=== PATIENT | male | born 1970 | race Caucasian/White ===

== ENCOUNTER 2021-02-07 20:28 | Inpatient (IN) ==
[2021-02-07] MEDS ORDERED: MoRPHine SULFATE 10 MG/ML CARP/VIAL IV STA (21:23)
[2021-02-07] MEDS ORDERED: KETOROLAC TROMETHAMINE 15 MG/ML VIAL IV ONE (21:23)
[2021-02-07] MEDS ORDERED: SODIUM CHLORIDE 0.9% 1000ML 2,000 ML IV ONE (21:23)
[2021-02-07] MEDS ORDERED: ONDANSETRON INJ 2 MG/ML 2 ML VIAL IV STA (21:23)
[2021-02-07] MEDS ORDERED: MoRPHine SULFATE 2 MG/ML CARP ONE (21:26)
[2021-02-07] MEDS ORDERED: MoRPHine SULFATE 4 MG/ML 1 ML CARP\\VIAL ONE (21:27)
[2021-02-07 21:38] LABS: Basophils # (auto) 0.02 K/uL (0-0.2); Basophils % (auto) 0.1 %; Eosinophils # (auto) 0.04 K/uL (0-0.5); Eosinophils % (auto) 0.2 %; Hemoglobin 17.1 g/dL (14.0-18.0); Immature Granulocytes # (auto) 0.07 K/uL (0.00-0.02); Immature Granulocytes % (auto) 0.4 %; Lymphocytes # (auto) 1.29 K/uL (1.2-3.4); Lymphocytes % (auto) 7.2 %; Mean Corpuscular Hemoglobin 32.8 pg (25-34); Mean Corpuscular Hgb Conc 34.9 g/dL (32-36); Mean Corpuscular Volume 93.9 fL (80-100); Mean Platelet Volume 11.2 fL (7.4-10.4); Monocytes # (auto) 1.06 K/uL (0.11-0.59); Monocytes % (auto) 5.9 %; Neutrophils # (auto) 15.44 K/uL (1.4-6.5); Neutrophils % (auto) 86.2 %; Platelet Count 193 K/uL (130-400); RDW Coefficient of Variation 13.1 % (11.5-14.5); RDW Standard Deviation 45.1 fL (36.4-46.3); Red Blood Count 5.22 M/uL (4.7-6.1); White Blood Count 17.92 K/uL (4.8-10.8)
--- NOTE | 2021-02-07 21:41 | Emergency Department Note ---
Impression & Plan Renal colic, Leukocytosis, Vomiting, ROX (acute kidney injury), Hyperglycemia, Acute dehydration, Hydronephrosis ED Provider Note NAME: KONRAD HOFFMAN AGE: 50 SEX: M : 1970 ARRIVES VIA: Walk-In INFORMANT: Patient ED PROVIDER(S): Alan Gibson DO CHIEF COMPLAINT: Severe right flank pain HPI: Patient is a 50-year-old male with a past medical history of renal stones that presents to the ER for severe right flank pain. Pain started around 530 tonight. It started in his right back and now radiates to the right flank. Pain is a 10 out of 10. Associate with nausea/vomiting. He is unable to urinate since the pain started. Prior to this he had no dysuria, urgency, or frequency. No chest pain or shortness of breath. No headache or change in vision. No other exacerbating or remitting factors. Does feel like his previous stone. Pain is sharp and stabbing in nature ROS: See above HPI for pertinent positives & negatives. A total of 10 systems reviewed and were otherwise negative. PAST MEDICAL HISTORY:See Below PAST SURGICAL HISTORY:See Below FAMILY HISTORY:See Below SOCIAL HISTORY:See Below HOME MEDICATIONS:See Below ALLERGIES:See Below VITALS:See Below PHYSICAL EXAMINATION: GENERAL: Sitting up in bed, alert, significant distress, tearful, holding right flank EYE EXAM: normal conjunctiva. OROPHARYNX: no exudate, no erythema, lips, buccal mucosa, and tongue normal and mucous membranes are moist NECK: supple, no nuchal rigidity, no adenopathy, non-tender LUNGS: Clear to auscultation. Normal chest wall mechanics HEART: no murmurs, S1 normal and S2 normal ABDOMEN: abdomen soft, non-tender, normo-active bowel sounds, no masses, no rebound or guarding. BACK: Back is symmetrical on inspection and there is no deformity, no midline tenderness, no CVA tenderness. UPPER EXTREMITIES: upper extremities are grossly normal. LOWER EXTREMITIES: No pitting edema. NEURO EXAM: Normal sensorium, cranial nerves II-XII grossly intact, normal speech, no gross weakness of arms, no gross weakness of legs. MEDICAL DECISION MAKING: Patient is a 50-year-old male who presents the ER for severe right flank pain. IV was established blood work was obtained. Labs show leukocytosis 17,000. No significant anemia.BMP with creatinine 1.6 likely suggesting some ROX secondary to dehydration. Glucose was elevated to 2 7. T bili slightly elevated. Lipase elevated 747 which I do favor secondary to the vomiting. UA without infection although hematuria present likely secondary to the stones.CT abdomen pelvis shows a 7 mm stone with hydronephrosis. He was given 2 doses of narcotics as well as IV Toradol and 3 L of IV fluids. With the persistent pain he was discussed with the hospitalist for further evaluation. Triage Nursing notes reviewed. Limited review of prior medical records performed Vital Signs: reviewed and remarkable for HTN and tachy Differential diagnosis: Differential diagnoses includes but is not limited to gastritis, peptic ulcer disease, GERD, gallbladder disease, pancreatitis, small bowel obstruction, acute coronary syndrome, pericarditis, ischemic bowel, irritable bowel disease, irritable bowel syndrome, appendicitis, diverticulitis, malignancy, hernia, urinary tract infection, torsion, perforation, trauma, infectious. ER treatment provided: See below Diagnostics interpreted by me: ECG: none Cardiac Monitoring: An order was placed for continuous cardiac monitoring. The monitor shows a rate of 101 with sinus rhythm. Laboratory studies: As stated above and show below. Imaging studies: CT per stat read shows a 7.2 mm stone just above the right UVJ Consultation(s): Discussed with Dr. Avelar for further evaluation Procedures: none Critical Care: None Past Med/Surg History Social History Smoking Status: Never smoker Preferred Language: Slovenian Feels Safe at Home: Yes Allergies Allergies Allergy/AdvReac Type Severity Reaction Status Date / Time adhesive Allergy Intermediate RED, Verified 02/07/21 22:21 BLISTERED SKIN Home Meds Home Medications Medication Instructions Recorded Confirmed atorvastatin 10 mg PO HS 02/07/21 02/07/21 gabapentin 0 mg PO HS 02/07/21 02/07/21 lisinopril 10 mg PO HS 02/07/21 02/07/21 metformin 1,000 mg PO BID 02/07/21 02/07/21 Results & Data (ED) Vital Signs Vital Signs - 24 hr 02/07/21 20:31 02/07/21 21:25 02/07/21 21:28 Temperature 36.6 C Temperature Source Temporal Artery Scan Pulse Rate 93 H 71 72 Pulse Rate from SpO2 Sensor 72 76 Pulse Rhythm Regular Pulse Strength Normal Respiratory Rate 22 17 22 Respiratory Effort / Characteristics Non-Labored Spontaneous Respiratory Depth Normal Blood Pressure 184/100 H 161/106 H Blood Pressure Mean 128 124 Pulse Oximetry 98 99 99 Oxygen Delivery Method Room Air Room Air Room Air Sepsis Recent Fever Within 48 Hours No Sepsis New/Unexplained Change in Mental Status N/A Sepsis Action Taken by Nursing No Action Required 02/07/21 21:30 02/07/21 21:31 02/07/21 22:00 Temperature Temperature Source Pulse Rate 98 H 97 H 114 H Pulse Rate from SpO2 Sensor 109 H 98 H 108 H Pulse Rhythm Pulse Strength Respiratory Rate 18 24 18 Respiratory Effort / Characteristics Respiratory Depth Blood Pressure 156/112 H 148/105 H Blood Pressure Mean 126 119 Pulse Oximetry 97 98 96 Oxygen Delivery Method Room Air Room Air Room Air Sepsis Recent Fever Within 48 Hours Sepsis New/Unexplained Change in Mental Status Sepsis Action Taken by Nursing 02/07/21 22:01 02/07/21 22:30 02/07/21 22:31 Temperature Temperature Source Pulse Rate 93 H 102 H 98 H Pulse Rate from SpO2 Sensor 93 H 97 H 101 H Pulse Rhythm Pulse Strength Respiratory Rate 22 13 14 Respiratory Effort / Characteristics Respiratory Depth Blood Pressure 162/100 H Blood Pressure Mean 120 Pulse Oximetry 97 94 96 Oxygen Delivery Method Room Air Room Air Room Air Sepsis Recent Fever Within 48 Hours Sepsis New/Unexplained Change in Mental Status Sepsis Action Taken by Nursing 02/07/21 23:00 02/07/21 23:01 02/07/21 23:30 Temperature Temperature Source Pulse Rate 87 91 H 106 H Pulse Rate from SpO2 Sensor 86 91 H 106 H Pulse Rhythm Pulse Strength Respiratory Rate 13 17 17 Respiratory Effort / Characteristics Respiratory Depth Blood Pressure 153/87 H 116/76 Blood Pressure Mean 109 89 Pulse Oximetry 95 94 94 Oxygen Delivery Method Room Air Room Air Room Air Sepsis Recent Fever Within 48 Hours Sepsis New/Unexplained Change in Mental Status Sepsis Action Taken by Nursing 02/07/21 23:31 Temperature Temperature Source Pulse Rate 97 H Pulse Rate from SpO2 Sensor 97 H Pulse Rhythm Pulse Strength Respiratory Rate 23 Respiratory Effort / Characteristics Respiratory Depth Blood Pressure Blood Pressure Mean Pulse Oximetry 94 Oxygen Delivery Method Room Air Sepsis Recent Fever Within 48 Hours Sepsis New/Unexplained Change in Mental Status Sepsis Action Taken by Nursing Laboratory Data Result diagrams: 02/07/21 21:18 02/07/21 21:18 Lab Results 02/07/21 02/07/21 02/07/21 Range/Units 21:18 21:18 22:37 WBC 17.92 H (4.8-10.8) K/uL RBC 5.22 (4.7-6.1) M/uL Hgb 17.1 (14.0-18.0) g/dL Hct 49.0 (42-52) % MCV 93.9 (80-100) fL MCH 32.8 (25-34) pg MCHC 34.9 (32-36) g/dL RDW Std Deviation 45.1 (36.4-46.3) fL RDW Coeff of Angy 13.1 (11.5-14.5) % Plt Count 193 (130-400) K/uL MPV 11.2 H (7.4-10.4) fL Immature Gran % (Auto) 0.4 % Neut % (Auto) 86.2 % Lymph % (Auto) 7.2 % [place] % (Auto) 5.9 % Eos % (Auto) 0.2 % Baso % (Auto) 0.1 % Neut # (Auto) 15.44 H (1.4-6.5) K/uL Lymph # (Auto) 1.29 (1.2-3.4) K/uL [place] # (Auto) 1.06 H (0.11-0.59) K/uL Eos # (Auto) 0.04 (0-0.5) K/uL Baso # (Auto) 0.02 (0-0.2) K/uL Immature Gran # (Auto) 0.07 H (0.00-0.02) K/uL Sodium 136 (136-145) mmol/L Potassium 3.9 (3.5-5.1) mmol/L Chloride 103 (98-107) mmol/L Carbon Dioxide 25 (21-32) mmol/L Anion Gap 8.0 (3-11) BUN 24 H (7-18) mg/dl Creatinine 1.62 H (0.6-1.4) mg/dl Est Cr Clr Drug Dosing Not Reportable Est GFR ( Amer) 57.3 Est GFR (Non-Af Amer) 49.4 BUN/Creatinine Ratio 15.1 (10-20) Glucose 227 H (70-99) mg/dl Calcium 8.9 (8.5-10.1) mg/dl Total Bilirubin 1.3 H (0.2-1) mg/dl AST 21 (15-37) U/L ALT 34 (12-78) U/L Alkaline Phosphatase 79 (45-117) U/L Total Protein 7.6 (6.4-8.2) gm/dl Albumin 4.4 (3.4-5.0) gm/dl Globulin 3.2 (2.5-4.0) gm/dl Albumin/Globulin Ratio 1.4 (0.9-2) Lipase 747 H (73-393) U/L Urine Color Dark Yellow Urine Appearance Clear (Clear) Urine pH 5.5 (4.5-7.5) Ur Specific [place] 1.028 (1.000-1.030) Urine Protein 1+ H (Negative) Urine Glucose (UA) 3+ H (Negative) Urine Ketones Trace H (Negative) Urine Blood 2+ H (Negative) Urine Nitrite Negative (Negative) Urine Bilirubin Negative (Negative) Urine Urobilinogen Negative (Negative) Ur Leukocyte Esterase Negative (Negative) Urine WBC (Auto) 5-10 H (0-5) /hpf Urine RBC (Auto) 5-10 H (0-4) /hpf U Hyaline Cast (Auto) 1-5 (0-5) /lpf U Epithel Cells (Auto) 10-20 H (0-5) /lpf Urine Bacteria (Auto) Negative (Negative) Urine Crystals Not Reportable Calcium Oxalate Crystal Present A (None Prsent) Administered Medications Sodium Chloride (Nss 1000ml) 1,000 mls @ 999 mls/hr IV .Q1H1M ONE Stop: 02/08/21 00:29 Last Admin: 02/07/21 23:43 Dose: 999 mls/hr Documented by: [id number] Discontinued Medications Sodium Chloride (Nss 1000ml) 2,000 mls @ 999 mls/hr IV .Q2H1M ONE Stop: 02/07/21 23:23 Last Infusion: 02/07/21 23:37 Dose: 0 mls/hr Documented by: [id number] Admin: 02/07/21 21:30 Dose: 999 mls/hr Documented by: [id number] Ketorolac Tromethamine (Ketorolac Tromethamine 15 Mg/Ml Vial) 15 mg IV NOW ONE Stop: 02/07/21 21:24 Last Admin: 02/07/21 21:33 Dose: 15 mg Documented by: [id number] Morphine Sulfate (Morphine Sulfate 10 Mg/Ml Carp/Vial) 6 mg IV NOW STA Stop: 02/07/21 21:24 Last Admin: 02/07/21 21:32 Dose: 6 mg Documented by: [id number] Morphine Sulfate (Morphine Sulfate 2 Mg/Ml Carp) Confirm Administered Dose 2 mg .ROUTE .STK-MED ONE Stop: 02/07/21 21:27 Last Admin: 02/07/21 21:32 Dose: Not Given Documented by: [id number] Morphine Sulfate (Morphine Sulfate 4 Mg/Ml 1 Ml Carp\Vial) Confirm Administered Dose 4 mg .ROUTE .STK-MED ONE Stop: 02/07/21 21:28 Last Admin: 02/07/21 21:32 Dose: Not Given Documented by: [id number] Morphine Sulfate (Morphine Sulfate 4 Mg/Ml 1 Ml Carp\Vial) 4 mg IV NOW STA Stop: 02/07/21 23:30 Last Admin: 02/07/21 23:43 Dose: 4 mg Documented by: [id number] Ondansetron HCl (Ondansetron Inj 2 Mg/Ml 2 Ml Vial) 4 mg IV NOW STA Stop: 02/07/21 21:24 Last Admin: 02/07/21 21:28 Dose: 4 mg Documented by: [id number] Discharge Plan Visit Data Chief Complaint: Abdominal Pain Stated Complaint: ABDOMINAL PAIN-POSSIBLE KIDNEY STONE? ED Provider: Alan Gibson Discharge Problem: Renal colic, Leukocytosis, Vomiting, ROX (acute kidney injury), Hyperglycemia, Acute dehydration, Hydronephrosis Forms Stand Alone Forms: [facility] Prescriptions Prescriptions: No Action atorvastatin 10 mg Tablet 10 mg PO HS RF: 0 metformin 1,000 mg Tablet 1,000 mg PO BID RF: 0 lisinopril 10 mg Tablet 10 mg PO HS RF: 0 gabapentin 300 mg Capsule 0 mg PO HS RF: 0 Discharge Problem: Leukocytosis Qualifiers: Leukocytosis type: unspecified Qualified Code(s): D72.829 - Elevated white blood cell count, unspecified Vomiting Qualifiers: Vomiting type: unspecified Vomiting Intractability: non-intractable Nausea presence: with nausea Qualified Code(s): R11.2 - Nausea with vomiting, unspecified Hydronephrosis Qualifiers: Hydronephrosis type: unspecified Qualified Code(s): N13.30 - Unspecified hydronephrosis
[2021-02-07 21:56] LABS: Alanine Aminotransferase 34 U/L (12-78); Albumin Level 4.4 gm/dl (3.4-5.0); Aspartate Aminotransferase 21 U/L (15-37); BUN Creatinine Ratio 15.1 (10-20); Blood Urea Nitrogen 24 mg/dl (7-18); Calcium 8.9 mg/dl (8.5-10.1); Carbon Dioxide 25 mmol/L (21-32); Chloride 103 mmol/L (98-107); Est GFR (African American) 57.3; Est GFR (Non-African American) 49.4; Glucose 227 mg/dl (70-99); Lipase 747 U/L (73-393); Potassium 3.9 mmol/L (3.5-5.1); Sodium 136 mmol/L (136-145)
[2021-02-07 21:59] LABS: Albumin Globulin Ratio 1.4 (0.9-2); Alkaline Phosphatase 79 U/L (45-117); Bilirubin,Total 1.3 mg/dl (0.2-1); Globulin 3.2 gm/dl (2.5-4.0); Total Protein 7.6 gm/dl (6.4-8.2)
[2021-02-07 22:48] LABS: Appearance Urine Clear (Clear); Bacteria Urine Automated Negative (Negative); Bilirubin Urine Negative (Negative); Blood Urine 2+ (Negative); Color Urine Dark Yellow; Glucose Urine UA 3+ (Negative); Ketones Urine Trace (Negative); Leukocyte Esterase Urine Negative (Negative); Nitrite Urine Negative (Negative); Protein Urine 1+ (Negative); Specific Gravity Urine 1.028 (1.000-1.030); Urobilinogen Urine Negative (Negative); pH Urine 5.5 (4.5-7.5)
[2021-02-07 23:09] LABS: Calcium Oxalate Crystals Urine Present (None Prsent)
[2021-02-07] MEDS ORDERED: SODIUM CHLORIDE 0.9% 1000ML 1,000 ML IV ONE (23:29)
[2021-02-07] MEDS ORDERED: MoRPHine SULFATE 4 MG/ML 1 ML CARP\\VIAL IV STA (23:29)
[2021-02-08] MEDS ORDERED: TAMSULOSIN HCL 0.4 MG CAP PO ONE (00:27)
[2021-02-08 00:34] LABS: Influenza A virus by PCR Negative (Neg); Influenza B virus by PCR Negative (Neg); RSV by PCR Negative (Neg); SARS CoV2 RNA(COVID-19) InHosp NEGATIVE (Negative)
--- NOTE | 2021-02-08 00:37 | History & Physical Report ---
Date of Service February 08, 2021 Assessment & Plan (1) Right nephrolithiasis: Patient is a 50 year old male with PMHx Nephrolithiasis, HLD, DM2, HTN, Restless leg syndrome who presents with R sided flank pain that began at 17:30 on day of admission which felt similar to prior kidney stones 20 years ago. R Nephrolithiasis with Hydronephrosis -Notable 7.2mm stone at the R ureterovesical junction in addition to mild to moderate R hydronephrosis and hydroureter on CT abdomen/pelvis. Additional stones noted at renal poles b/l, though do not feel they are contributing to patients current symptoms. -Given 3L NSS in ED, will continue aggressive hydration with LR 150ml/hr -Will give Tamsulosin 0.4mg now and qAM -Urology consulted for consideration of removal of stone vs symptomatic treatment -Will keep NPO at this time until evaluated by Urology -Strain all urine -Pain control with Toradol and IV Morphine PRN -Zofran PRN nausea ROX -Cr elevated 1.62 -Suspect due to hydronephrosis from obstructing stone -Expect improvement with passage of stone -Treatment as above ?UTI -Although suspect that Leukocytosis is related more to patients vomiting and demargination, he is experiencing symptoms of chills and dysuria. -UA more indicative of having a stone -Will cover empirically with CTX 1g QD, suspect that upon passing of stone that symptoms will resolve and can DC abx therapy HTN -Hold Lisinopril at this time for ROX DM2 -Hold metformin -SSI while inpatient HLD -Continue home Atorvastatin RLS -Continue home Gabapentin Dispo: Med/Surg for IVF, pain control FEN: NPO, LR 150ml/hr DVT: SCDs Code: Full (2) Renal colic: (3) Hydronephrosis: (4) ROX (acute kidney injury): History of Present Illness Chief Complaint: R flank pain Primary Care Provider: NABOR PEREZ Patient is a 50 year old male with PMHx Nephrolithiasis, HLD, DM2, HTN, Restle ss leg syndrome who presents with R sided flank pain that began at 17:30 on day of admission which felt similar to prior kidney stones 20 years ago. Patient notes that the pain was rapid in onset and built up until it was a 10/10 moving from his R low back and towards his flank/abdomen. Notes that in the beginning of the pain he also felt nauseous and vomited. He was also having difficulties with urinating at that time and was unable to do so. He states that he last had kidney stones 20 years ago which he had to under lithotripsy for removal on the R. He states currently that his pain is a 4/10 after analgesic administration and that his vomiting has relatively resolved. He states he is not experiencing any fever, chest pain, chest pressure, SOB, nausea, vomiting, diarrhea. He does note some chills and dysuria with the minimal amount that he has been able to put out. Med Hx: Nephrolithiasis, HLD, DM2, HTN, RLS Surg Hx: R Lithotripsy Soc Hx: Smokes 1PPD x30 years, 12 pack beer/month, recreational marijuana use for RLS qhs Allergies Allergy/AdvReac Type Severity Reaction Status Date / Time adhesive Allergy Intermediate RED, Verified 02/07/21 22:21 BLISTERED SKIN Home Medications Medication Instructions Recorded Confirmed Type atorvastatin 10 mg PO HS 02/07/21 02/07/21 History gabapentin 0 mg PO HS 02/07/21 02/07/21 History lisinopril 10 mg PO HS 02/07/21 02/07/21 History metformin 1,000 mg PO BID 02/07/21 02/07/21 History cephalexin 500 mg PO BID 5 Days #10 cap 02/09/21 Rx oxycodone-acetaminophen 5 mg-325 1 tab PO Q8H PRN #10 tab 02/10/21 Rx mg tablet phenazopyridine 200 mg tablet 200 mg PO TID PRN #7 tab 02/10/21 Rx tamsulosin 0.4 mg capsule 0.4 mg PO DAILY #30 cap 02/10/21 Rx Past Med/Surg History Medical History (Updated 02/10/21 @ 00:06 by Background Sushil) ROX (acute kidney injury) Hydronephrosis Hyperglycemia Renal colic Social History Smoking Status: Current every day smoker Cigarettes Per Day: 15-20; Hx Alcohol Use: Yes Alcohol type: beer Hx Substance Use: Yes Last Used Substance Other:: 02/07/21 Preferred Language: Greenlandic Communication Ability: Effective Beliefs That Will Affect Care: None Current Living Situation: Family Current Living Situation Comment: With sister until pt returns to [place] Feels Safe at Home: Yes Assistive Devices: None Review of Systems Review of Systems: All systems reviewed & are unremarkable except as noted in Subjective Physical Exam Constitutional: WD/WN, vitals as above Eyes: PERRL, conjunctivae normal, anicteric sclerae ENMT: external ear and nose normal, oropharynx normal Respiratory: normal respiratory effort, lungs clear to auscultation Cardiovascular: RRR, no murmur, no edema Gastrointestinal (Abdomen): normal bowel sounds, soft, nontender, no hepatosplenomegaly Musculoskeletal: no cyanosis or clubbing, extremities motor strength 5/5 Skin: no rashes, warm and dry Neurologic: PERRL, EOMI, accommodation nl, no face palsy, no dysarthria Psychiatric: A+Ox3, euthymic affect Genitourinary: no CVA tenderness (Surprisingly no CVA tenderness b/l at time of eval ) Results & Data Results & Data ([facility]) Vital Signs (Past 12 Hours) Vital Signs Temp Pulse Resp BP Pulse Ox 02/07/21 23:31 97 H 23 94 02/07/21 23:30 106 H 17 116/76 94 02/07/21 23:01 91 H 17 94 02/07/21 23:00 87 13 153/87 H 95 02/07/21 22:31 98 H 14 96 02/07/21 22:30 102 H 13 162/100 H 94 02/07/21 22:01 93 H 22 97 02/07/21 22:00 114 H 18 148/105 H 96 02/07/21 21:31 97 H 24 98 02/07/21 21:30 98 H 18 156/112 H 97 02/07/21 21:28 72 22 99 02/07/21 21:25 71 17 161/106 H 99 02/07/21 20:31 36.6 C 93 H 22 184/100 H 98 Supervising Physician Co-Signing Physician Notes Attending addendum: I have physically seen this patient, have supervised the medical residents activities, and agree with the H&P unless as otherwise noted. Assessment and Plan: 7.2 mm right UVJ obstructing calculus/mild to moderate right hydroureteronephrosis- N.p.o. Status post 3 L normal saline in ED. Continue LR at 150 mils per hour Give tamsulosin 0.4 mg p.o. now then every morning Empiric ceftriaxone 2 g IV daily Consult urology ROX-creatinine 1.62 upon admission. Repeat laboratories in a.m. after hydration Diabetes mellitus- Hold Metformin Placed on Accu-Cheks before meals and at bedtime with NovoLog coverage per scale Remaining orders and notations as noted Resident Activity Tracking Resident Involvement: Resident Care Provided Care Provided: Adult Hospital Medicine (1) Hydronephrosis Hydronephrosis type: unspecified Qualified Code(s): N13.30 - Unspecified hydronephrosis
[2021-02-08] MEDS ORDERED: GLUCAGON FOR INJ 1 MG VIAL SQ PRN (01:27)
[2021-02-08] MEDS ORDERED: CARBOHYDRATES FOR HYPOGLYCEMIA PO PRN (01:27)
[2021-02-08] MEDS ORDERED: ONDANSETRON INJ 2 MG/ML 2 ML VIAL IV PRN ×2 (01:27→17:07)
[2021-02-08] MEDS ORDERED: MoRPHine SULFATE 2 MG/ML CARP IV PRN (01:27)
[2021-02-08] MEDS ORDERED: DEXTROSE 50% 50 ML SYRINGE IV PRN (01:27)
[2021-02-08] MEDS ORDERED: GLUCOSE 40% GEL 15 GM TUBE PO PRN (01:27)
[2021-02-08] MEDS ORDERED: GLUCOSE 10 TABS/TUBE PO PRN (01:27)
[2021-02-08] MEDS ORDERED: MoRPHine SULFATE 4 MG/ML 1 ML CARP\\VIAL IV PRN (01:27)
[2021-02-08] MEDS: LACTATED RINGER'S 1,000 ML IV SCH ×3 (01:43→14:41)
[2021-02-08] MEDS: KETOROLAC TROMETHAMINE 15 MG/ML VIAL IV PRN ×4 (01:58→22:24)
[2021-02-08] MEDS: cefTRIAXone SODIUM 2,000 MG in DEXTROSE 5% 50 ML IV SCH (02:10)
[2021-02-08] MEDS: INSULIN ASPART 100 UNITS/ML 3 ML PEN SC SCH ×5 (02:22→21:07)
[2021-02-08] MEDS ORDERED: GABAPENTIN 600 MG TAB PO STA (03:19)
[2021-02-08 07:05] LABS: Basophils # (auto) 0.01 K/uL (0-0.2); Basophils % (auto) 0.1 %; Eosinophils # (auto) 0.05 K/uL (0-0.5); Eosinophils % (auto) 0.6 %; Hematocrit (blood only) 39.4 % (42-52); Hemoglobin 13.6 g/dL (14.0-18.0); Immature Granulocytes # (auto) 0.02 K/uL (0.00-0.02); Immature Granulocytes % (auto) 0.2 %; Lymphocytes # (auto) 2.28 K/uL (1.2-3.4); Lymphocytes % (auto) 28.2 %; Mean Corpuscular Hemoglobin 32.3 pg (25-34); Mean Corpuscular Hgb Conc 34.5 g/dL (32-36); Mean Corpuscular Volume 93.6 fL (80-100); Mean Platelet Volume 11.4 fL (7.4-10.4); Monocytes # (auto) 0.72 K/uL (0.11-0.59); Monocytes % (auto) 8.9 %; Neutrophils # (auto) 5.01 K/uL (1.4-6.5); Platelet Count 172 K/uL (130-400); RDW Coefficient of Variation 13.3 % (11.5-14.5); Red Blood Count 4.21 M/uL (4.7-6.1); White Blood Count 8.09 K/uL (4.8-10.8)
[2021-02-08 07:28] LABS: BUN Creatinine Ratio 16.9 (10-20); Calcium 8.1 mg/dl (8.5-10.1); Est GFR (African American) 92.5; Est GFR (Non-African American) 79.8
[2021-02-08 07:46] LABS: Estimated Average Glucose 134 mg/dl; Hemoglobin A1C 6.3 % (4.5-5.6)
--- NOTE | 2021-02-08 07:53 | Urology Consultation ---
Date of Consultation February 08, 2021 Assessment & Plan (1) Right ureteral calculus: (2) Hydronephrosis, right: (3) Renal colic: 50yo M admitted with intractable right flank pain with associated nausea vomiting secondary to a 9mm right vesicoureteral junction calculus with moderate right-sided hydronephrosis - Afebrile, VSS. - Labs reviewed, Wbc and creatinine normal today - Urine culture pending, follow culture - Keep NPO - Strain all urine. - Continue supportive care, pain control, flomax, and antibiotics - Findings reviewed with Dr. Mora - Given his intractable right flank pain in the context of an obstructing 9mm right vesicoureteral stone with moderate right-sided hydronephrosis, will proceed with OR for cystoscopy, right retrograde pyelogram, ureteroscopy, laser lithotripsy, stone treatment, stent placement depending on findings. Risks and benefits to be reviewed with patient by Dr. Mora. OR notified. On IV Ceftriaxone. Covid test negative. - Expected clinical course reviewed with patient. He is agreeable to plan, all questions were answered History of Present Illness Reason for Consultation: Right nephrolithiasis; Right Hydronephrosis Attending Physician: Pernell Burrows MD History of Present Illness The patient is a 50 year old male with PMHx including nephrolithiasis, HLD, DM2, HTN, and restless leg syndrome who presented to [facility] ER on 02/07 with severe right-sided flank pain with associated nausea vomiting which he reported felt similar to prior kidney stones [address] abdomen pelvis revealed a 9mm right UVJ calculus with moderate right sided hydronephrosis. On admission, patient was afebrile, labs showed leukocytosis at 17k, creatinine 1.6, likely suggesting some ROX. Urology consulted for right nephrolithiasis and hydronephrosis. Chart review 02/08: Afebrile, VSS. Wbc 8.09, Hgb 13.6, Cr 1.09. Urinalysis with 2+blood, 5-10wbc, 5-10rbc, negative leukocytes, negative bacteria, negative nitrite. Urine culture pending. On IV Ceftriaxone and PO tamsulosin. CT abdomen pelvis 02/07: IMPRESSION: 1. There is a 9 mm obstructing calculus at the right vesicoureteral junction . This causes moderate right hydroureteronephrosis. 2. Additional nonobstructing calculi are seen bilaterally. 3. There is advanced coronary artery calcification. Consider nonemergent cardiology assessment. KUB 02/08 IMPRESSION: 1. A 4 mm calcification projects over the right vesicoureteral junction, likely representing the patient's known obstructing distal ureteral calculus. This measures larger by CT, likely due to the plane of imaging. 2. Additional bilateral nonobstructing renal calculi as above. Patient examined at bedside this AM. Awake, resting in bed on arrival. He reports a significant improvement in his right-sided flank pain since admission. He currently rates pain 3/10. He denies fevers or chills. No nausea or vomiting today. He does report x1 emesis yesterday evening following dinner. He has been NPO since midnight Denies hematuria. Having some mild dysuria. Straining all urine. Denies urgency and frequency. Feels he is emptying his bladder well. Denies dizziness. No CP/SOB. He reports a hx of kidney stones > 20 years ago requiring surgical intervention with ureteroscopy and stent. He also reports spontaneous passage of stones in the past. He does not currently follow with a urologist. No additional complaints today Allergies Allergy/AdvReac Type Severity Reaction Status Date / Time adhesive Allergy Intermediate RED, Verified 02/07/21 22:21 BLISTERED SKIN Home Medications Medication Instructions Recorded Confirmed Type atorvastatin 10 mg PO HS 02/07/21 02/07/21 History gabapentin 0 mg PO HS 02/07/21 02/07/21 History lisinopril 10 mg PO HS 02/07/21 02/07/21 History metformin 1,000 mg PO BID 02/07/21 02/07/21 History Patient History Social History Smoking Status: Current every day smoker Cigarettes Per Day: 15-20; Hx Alcohol Use: Yes Alcohol type: beer Hx Substance Use: Yes Last Used Substance Other:: 02/07/21 Preferred Language: Canadian Communication Ability: Effective Beliefs That Will Affect Care: None Current Living Situation: Family Current Living Situation Comment: With sister until pt returns to [place] Feels Safe at Home: Yes Assistive Devices: None Review of Systems Review of Systems: All systems reviewed & are unremarkable except as noted in HPI & below Physical Exam Constitutional: well developed and well nourished; no acute distress and not ill appearing Respiratory: able to speak in complete sentences; no respiratory distress and no labored breathing Cardiovascular: Extremities: no calf tenderness and no pedal edema Gastrointestinal (Abdomen): Inspection/Auscultation: abdomen not distended Percussion/Palpation: + abdomen tender (mild right flank tenderness to palpation) and abdomen soft; no guarding Musculoskeletal: Head/Neck/Chest: normocephalic Skin: no rashes, warm and dry Neurologic: moves all extremities and awake Psychiatric: A+Ox3, euthymic affect Genitourinary: no CVA tenderness Results & Data ([facility]) Vital Signs (Past 12 Hours) Vital Signs Temp Pulse Pulse Resp BP BP Pulse Ox 02/08/21 07:43 36.5 C 71 16 114/72 94 02/08/21 01:40 36.6 C 85 16 142/80 H 93 02/08/21 01:04 88 16 95 02/08/21 01:00 101 H 16 127/76 93 02/08/21 00:31 103 H 19 93 02/08/21 00:30 102 H 17 120/74 93 02/08/21 00:01 103 H 21 93 02/07/21 23:31 97 H 23 94 02/07/21 23:30 106 H 17 116/76 94 02/07/21 23:01 91 H 17 94 02/07/21 23:00 87 13 153/87 H 95 02/07/21 22:31 98 H 14 96 02/07/21 22:30 102 H 13 162/100 H 94 02/07/21 22:01 93 H 22 97 02/07/21 22:00 114 H 18 148/105 H 96 02/07/21 21:31 97 H 24 98 02/07/21 21:30 98 H 18 156/112 H 97 02/07/21 21:28 72 22 99 02/07/21 21:25 71 17 161/106 H 99 02/07/21 20:31 36.6 C 93 H 22 184/100 H 98 PG Care Time/CCT Total # of Minutes Spent Total Time Spent with Patient: Total time spent is greater than 50% in coordination of care (as documented) at patient's floor/unit and/or counseling patient: Coding Level of Care Code 01635 Inpt Consult Level 4 Diagnoses Right ureteral calculus N20.1 Hydronephrosis, right N13.30 Renal colic N23
--- NOTE | 2021-02-08 08:00 | CT Scan Report ---
CT SCAN OF THE ABDOMEN AND PELVIS WITHOUT IV CONTRAST CLINICAL HISTORY: Right flank pain. COMPARISON STUDY: No priors. TECHNIQUE: CT scan of the abdomen and pelvis is performed from the lung bases to the proximal femora. Images are reviewed in the axial, sagittal, and coronal planes. IV contrast was not administered for this examination. A dose lowering technique was utilized adhering to the principles of ALARA. CT DOSE: 756.97 mGy.cm FINDINGS: Lung bases: The heart is normal in size and without pericardial effusion. The coronary arteries are d ensely calcified. A 3 mm pleural-based nodule is incidentally noted in the right middle lobe on image #25. The lung bases are otherwise clear. Liver: The unenhanced liver is normal in size, contour, and attenuation. There is no intrahepatic cari iary ductal dilatation. Gallbladder: Contracted. Spleen: Normal in size and attenuation. Pancreas: Unremarkable. Adrenal glands: Unremarkable. Kidneys: The unenhanced kidneys are normal in size. There is a 9 mm obstructing calculus at the right vesicoureteral junction seen on image #378. This causes moderate right hydroureteronephrosis. There is associated perinephric and periureteric stranding. There are least 4 additional punctate nonobstru cting right renal calculi. A 12 mm nonobstructing calculus is seen in the left lower pole. There is n o left-sided hydronephrosis. A 2.4 cm cyst is noted in the interpolar left kidney. Abdominal vasculature: The abdominal aorta is normal in course and caliber noting mild to moderate at herosclerotic calcification. Bowel: There is no bowel obstruction. The appendix is well-visualized and normal. Peritoneum: There is no intraperitoneal free air or abdominal ascites. Lymphadenopathy: None. Pelvic viscera: The bladder, prostate, and seminal vesicles are normal as visualized. Skeletal structures: No lytic or blastic lesions are seen. IMPRESSION: 1. There is a 9 mm obstructing calculus at the right vesicoureteral junction. This causes moderate ri ght hydroureteronephrosis. 2. Additional nonobstructing calculi are seen bilaterally. 3. There is advanced coronary artery calcification. Consider nonemergent cardiology assessment. 4. Additional findings as above. ACT 112: Positive. There are findings on this exam that require communication between the performing entity and the patient following Patient Test Result Information Act ([place] Act 112) guidelines. Electronically signed by: Trino Davila M.D. 02/08/2021 7:58 AM
--- NOTE | 2021-02-08 08:19 | XRay Report ---
KUB CLINICAL HISTORY: Nephrolithiasis. FINDINGS: 2 AP supine abdominal radiographs are correlated with abdominal CT dated 02/07/2021. There is a nonobstructed abdominal bowel gas pattern. A 4 mm calcification projects over the right vesicouret eral junction. A 9 mm nonobstructing calculus projects over the lower pole of left kidney. Punctate c alculi project over the lower pole of the right kidney. The bony structures appear intact. IMPRESSION: 1. A 4 mm calcification projects over the right vesicoureteral junction, likely representing the rupa ent's known obstructing distal ureteral calculus. This measures larger by CT, likely due to the plane of imaging. 2. Additional bilateral nonobstructing renal calculi as above. Electronically signed by: Trino Davila M.D. 02/08/2021 8:18 AM
[2021-02-08] MEDS: TAMSULOSIN HCL 0.4 MG CAP PO SCH (08:41)
--- NOTE | 2021-02-08 09:47 | Hospitalist Progress Note ---
Date of Service February 08, 2021 Assessment & Plan (1) Right nephrolithiasis: Patient is a 50 year old male with PMHx Nephrolithiasis, HLD, DM2, HTN, Restless leg syndrome who presents with R sided flank pain that began at 17:30 on day of admission which felt similar to prior kidney stones 20 years ago. R Nephrolithiasis with Hydronephrosis : -Notable 9mm stone at the R vesicoureteral junction in addition to mild to moderate R hydronephrosis/hydroureter on CT abdomen/pelvis, with several smaller non-obstructive renal pole stones bilaterally. -Was given 3L NSS in ED, continue LR 150mL/hr while NPO. -Continue Tamsulosin 0.4mg daily. -Urology consulted; plan for cystoscopy with possible stent placement today. -Strain all urine. -Pain control with IV Toradol and IV Morphine PRN. -Zofran PRN nausea. ROX: -Cr elevated 1.62 on admission -> 1.50 with IV fluids overnight. -Suspect post-obstructive from nephrolithiasis causing hydronephrosis. -Expect improvement with passage of stone and continued IV fluids. -Hold YVONNE. Dysuria, Leukocytosis: -Leukocytosis 17.9 -> 8.09 overnight. No symptoms of UTI at this time, painful urination suspected to be due to obstructive stone. -UA without bacteria. UCx pending. -Currently on ceftriaxone 1g daily, continue per Urology recommendations. HTN: -Continue to hold Lisinopril for ROX. -BP normotensive. DM2: -Hold metformin. -Start SSI. HLD: -Continue home Atorvastatin. RLS: -Continue home Gabapentin. Code: Full Code FEN: NPO, LR 150ml/hr; regular diet after Urology intervention DVT: SCDs and ad luis on demand; low risk for DVT Dispo: Med/Surg for IVF, pain control, Urologic intervention Admission and Anticipated Discharge Date Admission Date: February 08, 2021 Supervising Physician Co-Signing Physician Notes Resident Physician Supervision Note: I independently interviewed and examined the patient and verified the mcgrath history and physical, reviewed labs and image studies, discussed the case with the resident Dr. Whitehead and agree with the findings and care plan. Subjective Patient without acute events overnight. Reports that his back and abdominal pain is significantly better as compared to yesterday. He denies chest pain, shortness of breath, nausea or vomiting, dysuria. Urination is not painful this morning like it was yesterday. Has a history of kidney stone many years ago. Review of Systems Review of Systems: All systems reviewed & are unremarkable except as noted in HPI & below Constitutional: + malaise; no fever and no chills Respiratory: no cough and no dyspnea Cardiovascular: no chest pain, no palpitations and no edema Gastrointestinal: no abdominal pain, no constipation and no diarrhea/loose stools Physical Exam Constitutional: WD/WN, vitals as above Respiratory: normal respiratory effort, lungs clear to auscultation Cardiovascular: RRR, no murmur, no edema Gastrointestinal (Abdomen): Inspection/Auscultation: abdomen normal to inspection and normal bowel sounds; abdomen not distended Percussion/Palpation: + abdomen tender (mild, lower quadrants) and abdomen soft Skin: no rashes, warm and dry Psychiatric: A+Ox3, euthymic affect Results & Data Results & Data ([facility]) Vital Signs (Past 12 Hours) Vital Signs Temp Pulse Pulse Resp BP BP Pulse Ox 02/08/21 07:43 36.5 C 71 16 114/72 94 02/08/21 01:40 36.6 C 85 16 142/80 H 93 02/08/21 01:04 88 16 95 02/08/21 01:00 101 H 16 127/76 93 02/08/21 00:31 103 H 19 93 02/08/21 00:30 102 H 17 120/74 93 02/08/21 00:01 103 H 21 93 02/07/21 23:31 97 H 23 94 02/07/21 23:30 106 H 17 116/76 94 02/07/21 23:01 91 H 17 94 02/07/21 23:00 87 13 153/87 H 95 02/07/21 22:31 98 H 14 96 02/07/21 22:30 102 H 13 162/100 H 94 02/07/21 22:01 93 H 22 97 02/07/21 22:00 114 H 18 148/105 H 96 Resident Activity Tracking Resident Involvement: Resident Care Provided Care Provided: Adult Hospital Medicine
[2021-02-08] MEDS: ACETAMINOPHEN 325 MG TAB PO PRN ×2 (11:02→19:23)
[2021-02-08] MEDS ORDERED: fentaNYL citrate 100 MCG/2 ML VIAL ONE (16:50)
[2021-02-08] MEDS ORDERED: LIDOCAINE HCL 2% 2 ML VIAL/AMP(20MG/ML) INFIL ONE (16:50)
[2021-02-08] MEDS ORDERED: DEXAMETHASONE SOD INJ 4 MG/ML VIAL ONE (16:50)
[2021-02-08] MEDS ORDERED: ONDANSETRON INJ 2 MG/ML 2 ML VIAL ONE (16:50)
[2021-02-08] MEDS ORDERED: MIDAZOLAM HCL 1 MG/ML 2ML VIAL ONE (16:50)
[2021-02-08] MEDS ORDERED: PROPOFOL IV EMULSION 10 MG/ML 20 ML VIAL IV ONE ×2 (16:50→17:47)
[2021-02-08] MEDS ORDERED: fentaNYL citrate 100 MCG/2 ML VIAL IV PRN (17:07)
[2021-02-08] MEDS ORDERED: ATROPINE SULFATE 0.1 MG/ML 10ML SYR IV PRN (17:07)
[2021-02-08] MEDS ORDERED: NALOXONE HCL 0.4 MG/1 ML VIAL/CARP IV PRN (17:07)
[2021-02-08] MEDS ORDERED: LABETALOL HCL IV 5 MG/ML 20ML IV PRN (17:07)
[2021-02-08] MEDS ORDERED: PROMETHAZINE HCL 12.5 MG in SODIUM CHLORIDE 0.9% 50 ML IV PRN (17:07)
[2021-02-08] MEDS ORDERED: FLUMAZENIL 0.1 MG/1 ML 10 ML VIAL IV PRN (17:07)
[2021-02-08] MEDS ORDERED: ePHEDrine sulfate 50 MG/ML AMP IV PRN (17:07)
--- NOTE | 2021-02-08 17:07 | Anesthesiology Consultation ---
Date of Service February 08, 2021 Assessment & Plan Chart Review Chart Review: Acceptable Risk for Surgery and Patient NOT seen in Pre Admission Testing Consults Requested none ASA ASA3 Proposed Anesthesia Anesthesia Type: General Risk / Benefits Reviewed With: PT / POA / Parent / Guardian, Accepts Plan and Informed Consent Obtained Additional Comments: covid test negative History Surgery Operation Date: 02/08/21 15:30 Proposed Procedures p Cystoscopy, Right Retrograde Pyelogram, Ureteroscopy, Laser Lithotripsy, Stent Placement - Josse Mora MD Height/Weight Height: 6 ft Weight: 105.46 kg Allergies Allergy/AdvReac Type Severity Reaction Status Date / Time adhesive Allergy Intermediate RED, Verified 02/07/21 22:21 BLISTERED SKIN Medications Home Medications Medication Instructions Recorded Confirmed Last Taken atorvastatin 10 mg PO HS 02/07/21 02/07/21 02/06/21 gabapentin 0 mg PO HS 02/07/21 02/07/21 02/06/21 lisinopril 10 mg PO HS 02/07/21 02/07/21 02/06/21 metformin 1,000 mg PO BID 02/07/21 02/07/21 02/07/21 08:00 Active Medications Generic Name Dose Route Start Last Admin Trade Name Freq PRN Reason Stop Dose Admin Acetaminophen 650 mg 02/08/21 01:27 02/08/21 11:02 Acetaminophen 325 Mg Tab PO 03/10/21 01:26 650 mg Q4H PRN Administration pain/fever Lactated Ringer's 1,000 mls @ 150 mls/hr 02/08/21 01:27 02/08/21 14:41 Lr IV 03/10/21 01:26 150 mls/hr .Q6H40M ANÍBAL Administration Ceftriaxone Sodium 2,000 mg/ 70 mls @ 100 mls/hr 02/08/21 02:00 02/08/21 03:11 Dextrose IV 02/18/21 01:59 Infused Q24H ANÍBAL Infusion Protocol Insulin Aspart 0 units 02/08/21 02:00 02/08/21 17:06 Insulin Aspart 100 Units/Ml 3 Ml Pen SC 03/10/21 01:59 Not Given Q6 ANÍBAL Ketorolac Tromethamine 15 mg 02/08/21 01:27 02/08/21 15:59 Ketorolac Tromethamine 15 Mg/Ml Vial IV 02/13/21 01:26 15 mg Q6H PRN Administration Pain & Pre PT Tamsulosin HCl 0.4 mg 02/08/21 09:00 02/08/21 08:41 Tamsulosin Hcl 0.4 Mg Cap PO 03/10/21 08:59 0.4 mg QAM ANÍBAL Administration NPO Date Last Intake of Fluids: 02/08/21 Time Last Intake of Fluids: 08:00 Last Intake of Fluids Comment: with sips and chips Date Last Intake of Solids: 02/07/21 Time Last Intake of Solids: 17:30 Last Intake of Solids Comment: NPO except sips, ice, meds since ED Exercise / Class Metabolic Activity II 4-5 Yardwork/Stairs/Walk up hill Past Anesthesia History No Hx of Anesthesia Complications and No Family Hx of Anesthesia Complications History of PONV No Hx of PONV and No Hx of Motion Sickness Social History Smoking Status: Current every day smoker tobacco type: cigarettes Smoking cigarettes per day: 15-20 Hx Alcohol Use: Yes Alcohol type: beer alcohol intake frequency: a few times a week Hx Substance Use: Yes substance use type: marijuana Last Used Substance Other:: 02/07/21 Physical Exam Vital Signs Last Vital Signs Temp 37.1 C 02/08/21 16:45 Pulse 71 02/08/21 16:45 Resp 18 02/08/21 16:45 BP 136/78 02/08/21 16:45 Pulse Ox 95 02/08/21 16:45 Constitutional + obese ENMT Mouth: no dentition abnormality Thyromental Distance: > or= 3.5 Finger Breadths Mallampati Class: II Neck normal visual inspection, trachea midline and + facial hair; neck extension not limited Respiratory normal respiratory effort Auscultation: lungs clear to auscultation bilaterally Cardiovascular Rate/Rhythm: regular rate and regular rhythm Heart Sounds: no murmur Vessels: no carotid bruit Musculoskeletal Spine: normal cervical ROM Extremities: extremities normal to inspection Neurologic moves all extremities Motor/Sensory: no sensory deficit Psychiatric Orientation: alert and oriented x 3 Testing Laboratory Results 02/08/21 06:07 02/08/21 06:07 Hemoglobin A1c 6.3 % (4.5-5.6) H 02/08/21 06:07 Urine Color Dark Yellow 02/07/21 22:37 Urine Appearance Clear (Clear) 02/07/21 22:37 Urine pH 5.5 (4.5-7.5) 02/07/21 22:37 Ur Specific [place] 1.028 (1.000-1.030) 02/07/21 22:37 Urine Protein 1+ (Negative) H 02/07/21 22:37 Urine Glucose (UA) 3+ (Negative) H 02/07/21 22:37 Urine Ketones Trace (Negative) H 02/07/21 22:37 Urine Nitrite Negative (Negative) 02/07/21 22:37 Ur Leukocyte Esterase Negative (Negative) 02/07/21 22:37 Urine WBC (Auto) 5-10 /hpf (0-5) H 02/07/21 22:37 Urine RBC (Auto) 5-10 /hpf (0-4) H 02/07/21 22:37 U Hyaline Cast (Auto) 1-5 /lpf (0-5) 02/07/21 22:37 U Epithel Cells (Auto) 10-20 /lpf (0-5) H 02/07/21 22:37 Urine Bacteria (Auto) Negative (Negative) 02/07/21 22:37 02/08/21 02/08/21 02/08/21 16:23 12:11 05:52 POC Glucose 100 H 109 H 101 H
--- NOTE | 2021-02-08 18:10 | Operative Report ---
PG Post Operative Report Pre & Post Diagnosis Operation Date: 02/08/21 15:30 Pre-Op Diagnosis: Right ureteral stones, hydronephrosis Post-Op Diagnosis: Right ureteral stones, hydronephrosis I identified the patient and participated in the time-out.: Yes Procedure Operation Date: 02/08/21 15:30 Actual Procedures p Cystoscopy, Ureteroscopy, Laser Lithotripsy, Right ureteral Stent Placement(Not Applicable) - Josse Mora MD Surgeon Mihai Mora MD Fulling Machine Operator none Estimated Blood Loss 0 Findings Consistent with Post-Op Diagnosis Specimens Stone for chemical analysis Description of Procedure The patient was identified in the preoperative holding area, appropriate informed consents were reviewed and completed and the patient was transferred to the operative suite. Upon arrival, appropriate antibiotics and anesthesia were administered and the patient was placed in dorsal lithotomy position and prepped and draped in sterile fashion. To be in the case I passed a 22 [place]ese cystoscope with 30 degree lens and visual obturator. Inspection revealed a healthy-appearing urethra and a relatively small prostate. Inspection of the bladder was conducted and revealed healthy- appearing mucosa without any stones. I turned my attention of the right UO and cannulated with a sensor wire and a 10 Congolese double-lumen catheter. I utilized the 10 [place]ese double-lumen catheter to dilate the distal aspect of the ureter. I then reentered the bladder with a semirigid ureteroscope. This was guided into the distal right ureter where I encountered a stone just above an edematous ring. I was able to fragment the stone into pieces that were small enough to irrigate free from the ureter. After feeling at all stone debris had been appropriately irrigated, advance the scope maximally and saw no retained fragments. A 6 Congolese by 26 cm double-J ureteral stent was placed and well-positioned. The case was concluded and he was extubated and taken to the PACU in stable condition. There were no complications. I attest to the content of the Intraoperative Record and any orders documented therein. Any exceptions are noted below.
--- NOTE | 2021-02-08 18:40 | Fluoroscopy Report ---
[place] KUB HISTORY: 50 years-old Male RT CYSTO/LASER/STENT right-sided cystourethrogram COMPARISON: CT 02/07/2021 TECHNIQUE: One spot fluoroscopic images of the abdominal right upper quadrant was obtained utilizing 2.6 seconds fluoroscopy time FINDINGS: The proximal portion of a right ureteral stent is imaged which appears to be in satisfactory position ing. The distal stent is not imaged. No ureteral calculus identified on this image. IMPRESSION: Fluoroscopic assistance as above. ACT 112: Negative or not required by law. The above report was generated using voice recognition software. It may contain grammatical, syntax o r spelling errors. Electronically signed by: Nelson Walter M.D. 02/08/2021 6:39 PM
--- NOTE | 2021-02-08 19:09 | Anesthesiology Progress Note ---
Date of Service February 08, 2021 Anesthesia Post Procedure Vital Signs Vital Signs: Temp Pulse Pulse Pulse Resp BP BP 02/08/21 19:00 37.1 C 67 16 125/78 02/08/21 18:50 37.1 C 67 19 127/60 02/08/21 18:40 66 13 122/74 02/08/21 18:30 61 13 121/78 02/08/21 18:21 36.4 C L 73 16 115/75 02/08/21 16:45 37.1 C 71 18 02/08/21 16:25 36.6 C 68 16 02/08/21 07:43 36.5 C 71 16 02/08/21 01:40 36.6 C 85 16 02/08/21 01:04 88 16 02/08/21 01:00 101 H 16 127/76 02/08/21 00:31 103 H 19 02/08/21 00:30 102 H 17 120/74 02/08/21 00:01 103 H 21 02/07/21 23:31 97 H 23 02/07/21 23:30 106 H 17 116/76 02/07/21 23:01 91 H 17 02/07/21 23:00 87 13 153/87 H 02/07/21 22:31 98 H 14 02/07/21 22:30 102 H 13 162/100 H 02/07/21 22:01 93 H 22 02/07/21 22:00 114 H 18 148/105 H 02/07/21 21:31 97 H 24 02/07/21 21:30 98 H 18 156/112 H 02/07/21 21:28 72 22 02/07/21 21:25 71 17 161/106 H 02/07/21 20:31 36.6 C 93 H 22 184/100 H BP Pulse Ox 02/08/21 19:00 94 02/08/21 18:50 94 02/08/21 18:40 99 02/08/21 18:30 99 02/08/21 18:21 98 02/08/21 16:45 136/78 95 02/08/21 16:25 126/76 95 02/08/21 07:43 114/72 94 02/08/21 01:40 142/80 H 93 02/08/21 01:04 95 02/08/21 01:00 93 02/08/21 00:31 93 02/08/21 00:30 93 02/08/21 00:01 93 02/07/21 23:31 94 02/07/21 23:30 94 02/07/21 23:01 94 02/07/21 23:00 95 02/07/21 22:31 96 02/07/21 22:30 94 02/07/21 22:01 97 02/07/21 22:00 96 02/07/21 21:31 98 02/07/21 21:30 97 02/07/21 21:28 99 02/07/21 21:25 99 02/07/21 20:31 98 Pain Intensity Right Flank: Pain Intensity: 6 Transfer of Care Handoff Completed per policy Notes Mental Status: alert / awake / arousable Patient Amnestic to Procedure: Yes Nausea / Vomiting: adequately controlled Pain: adequately controlled Airway Patency, RR, SpO2: stable & adequate BP & HR: stable & adequate Hydration State: stable & adequate Anesthetic Complications: no major complications apparent
[2021-02-08] MEDS ORDERED: Nursing to Pharmacy Communication SCH (19:30)
[2021-02-08] MEDS ORDERED: ATORVASTATIN 10 MG TAB PO SCH (21:00)
[2021-02-08] MEDS ORDERED: GABAPENTIN 300 MG CAP PO SCH (21:00)
[2021-02-09] MEDS: cefTRIAXone SODIUM 2,000 MG in DEXTROSE 5% 50 ML IV SCH (01:44)
[2021-02-09 06:16] LABS: Hematocrit (blood only) 41.8 % (42-52); Hemoglobin 14.6 g/dL (14.0-18.0); Mean Corpuscular Hgb Conc 34.9 g/dL (32-36); Mean Corpuscular Volume 94.6 fL (80-100); Mean Platelet Volume 11.1 fL (7.4-10.4); Platelet Count 176 K/uL (130-400); RDW Coefficient of Variation 12.9 % (11.5-14.5); RDW Standard Deviation 45.1 fL (36.4-46.3); Red Blood Count 4.42 M/uL (4.7-6.1); White Blood Count 10.09 K/uL (4.8-10.8)
[2021-02-09 06:59] LABS: BUN Creatinine Ratio 14.9 (10-20); Calcium 8.6 mg/dl (8.5-10.1); Est GFR (African American) 92.5; Est GFR (Non-African American) 79.8; Potassium 4.5 mmol/L (3.5-5.1)
--- NOTE | 2021-02-09 08:16 | Urology Progress Note ---
Date of Service February 09, 2021 Assessment & Plan (1) Right ureteral calculus: (2) Hydronephrosis, right: (3) Renal colic: 50 year-old male patient admitted with intractable right flank pain with associated nausea/vomiting secondary to obstructing 9mm right UVJ calculus. -POD#1 cystoscopy, right ureteroscopy, laser lithotripsy, and right ureteral stent placement with Dr. Mora. -Clinically progressing as expected. -He remains afebrile. -Labs reviewed - white count and creatinine stable. -Urine culture pending. -Okay for discharge home today from standpoint. -Recommend home with Flomax, PRN Pyridium, and pain control. -Will arrange outpatient follow-up with urology service for stent removal next week. -Expected clinical course reviewed with patient, all questions answered. Thank you for allowing us to participate in the acute care of Mr. Michel. Please reconsult us with additional questions, concerns or changes in patient status. Admission and Anticipated Discharge Date Admission Date: February 08, 2021 Subjective POD#1 cystoscopy, right ureteroscopy, laser lithotripsy, and right ureteral stent placement. Patient examined at bedside. He is alert, awake, comfortable. No reported complications overnight, was able to get some sleep. Currently notes mild discomfort to right flank area. Denies significant flank or abdominal pain. Does report dysuria, denies hematuria. Denies urinary frequency/urgency. Denies fevers or chills. Denies nausea or vomiting. Has been out of bed without dizziness/lightheadedness. He would like to go home today. Chart review: Afebrile Wbc 10.09 Hgb 14.6 Creatinine 1.09 Urine culture pending. Currently on IV Ceftriaxone. Denies additional urologic concerns today. Review of Systems Constitutional: as per Subjective / HPI; no fever and no chills Gastrointestinal: as per Subjective / HPI; no nausea and no vomiting Genitourinary: + as per Subjective / HPI Physical Exam Constitutional: well developed and well nourished; no acute distress and not ill appearing Respiratory: normal respiratory effort and able to speak in complete sentences; no respiratory distress and no audible wheezes Gastrointestinal (Abdomen): Inspection/Auscultation: abdomen normal to inspection; abdomen not distended Percussion/Palpation: abdomen soft; abdomen nontender and no guarding Psychiatric: Orientation: alert, oriented x 3 and cooperative Affect: euthymic affect Genitourinary: no CVA tenderness [facility] & [facility]) Vital Signs (Past 12 Hours) Vital Signs Temp Pulse Resp BP BP Pulse Ox 02/08/21 22:10 36.8 C 81 16 135/71 94 02/08/21 21:10 36.8 C 72 16 115/68 93 02/08/21 20:20 36.8 C 74 16 162/91 H 94 PG Care Time/CCT Total # of Minutes Spent Total Time Spent with Patient: Total time spent is greater than 50% in coordination of care (as documented) at patient's floor/unit and/or counseling patient: Coding Level of Care Code 45509 Subseq Hosp Care Lvl 2 Diagnoses Right ureteral calculus N20.1 Hydronephrosis, right N13.30 Renal colic N23
[2021-02-09] MEDS: TAMSULOSIN HCL 0.4 MG CAP PO SCH (08:30)
[2021-02-09] MEDS: KETOROLAC TROMETHAMINE 15 MG/ML VIAL IV PRN (08:36)
[2021-02-09] MEDS: INSULIN ASPART 100 UNITS/ML 3 ML PEN SC SCH ×2 (09:54→13:19)
--- NOTE | 2021-02-09 13:53 | Discharge Summary ---
Date of Service February 09, 2021 Admission HPI Per Admitting Provider Patient is a 50 year old male with PMHx Nephrolithiasis, HLD, DM2, HTN, Restless leg syndrome who presents with R sided flank pain that began at 17:30 on day of admission which felt similar to prior kidney stones 20 years ago. Patient notes that the pain was rapid in onset and built up until it was a 10/10 moving from his R low back and towards his flank/abdomen. Notes that in the beginning of the pain he also felt nauseous and vomited. He was also having difficulties with urinating at that time and was unable to do so. He states that he last had kidney stones 20 years ago which he had to under lithotripsy for removal on the R. He states currently that his pain is a 4/10 after analgesic administration and that his vomiting has relatively resolved. He states he is not experiencing any fever, chest pain, chest pressure, SOB, nausea, vomiting, diarrhea. He does note some chills and dysuria with the minimal amount that he has been able to put out. Med Hx: Nephrolithiasis, HLD, DM2, HTN, RLS Surg Hx: R Lithotripsy Soc Hx: Smokes 1PPD x30 years, 12 pack beer/month, recreational marijuana use for RLS qhs Admission Exam Per Admitting Provider Constitutional: WD/WN, vitals as above Eyes: PERRL, conjunctivae normal, anicteric sclerae ENMT: external ear and nose normal, oropharynx normal Respiratory: normal respiratory effort, lungs clear to auscultation Cardiovascular: RRR, no murmur, no edema Gastrointestinal (Abdomen): normal bowel sounds, soft, nontender, no hepatosplenomegaly Musculoskeletal: no cyanosis or clubbing, extremities motor strength 5/5 Skin: no rashes, warm and dry Neurologic: PERRL, EOMI, accommodation nl, no face palsy, no dysarthria Psychiatric: A+Ox3, euthymic affect Genitourinary: no CVA tenderness Principal Diagnosis obstructive right nephrolithiasis, ROX Discharge Exam Constitutional WD/WN, vitals as above Respiratory normal respiratory effort, lungs clear to auscultation Cardiovascular RRR, no murmur, no edema Gastrointestinal (Abdomen) Inspection/Auscultation: abdomen normal to inspection and normal bowel sounds; abdomen not distended Percussion/Palpation: + abdomen tender (mild, RLQ) and abdomen soft Skin no rashes, warm and dry Psychiatric A+Ox3, euthymic affect Discharge Data Allergies Allergy/AdvReac Type Severity Reaction Status Date / Time adhesive Allergy Intermediate RED, Verified 02/07/21 22:21 BLISTERED SKIN Consultations 02/07/21 23:29 ED Decision to Admit Stat 02/08/21 01:27 Consult Urology Routine Procedures Performed Operation Date: 02/08/21 15:30 Actual Procedures p Cystoscopy, Ureteroscopy, Laser Lithotripsy, Right ureteral Stent Placement(Not Applicable) - Josse Mora MD Ordered Studies 02/07/21 21:23 CT abd pelvis wo con Urgent 02/08/21 17:00 FL KUB Routine FL fluoroscopy <1hr Routine Hospital Course (1) Right nephrolithiasis: Patient is a 50 year old male with PMHx Nephrolithiasis, HLD, DM2, HTN, Restless leg syndrome who presents with R sided flank pain that began at 17:30 on day of admission which felt similar to prior kidney stones 20 years ago. R Nephrolithiasis with Hydronephrosis : -Notable 9mm stone at the R vesicoureteral junction in addition to mild to moderate R hydronephrosis/hydroureter on CT abdomen/pelvis, with several smaller non-obstructive renal pole stones bilaterally. -Was given 3L NSS in ED, continue LR 150mL/hr while NPO. -Urology consulted; underwent cystoscopy, right ureteroscopy, laser lithotripsy, and right ureteral stent placement with Dr. Mora on 02/08. -Has follow up with Urology for stent removal in about 1 week. -Advised to use NSAIDs/Tylenol for pain. ROX: -Cr elevated 1.62 on admission -> 1.09 with IV fluids and removal of obstructive stone. -Suspect post-obstructive from nephrolithiasis causing hydronephrosis. -Catracho held during admission, but resumed for discharge given resolution of ROX. Dysuria, Leukocytosis: -Leukocytosis 17.9 -> 8.09 with IV antibiotics. -UA without bacteria. UCx with pinpoint growth. -Ceftriaxone 1g daily while in hospital, transitioned to Keflex 500mg BID for total antibiotic course of 7 days. HTN: -CATRACHO resumed on discharge. DM2: -Continue metformin. HLD: -Continue home Atorvastatin. RLS: -Continue home Gabapentin. Total Time Total Time Spent Total Time Spent (In Minutes): see attending attestation Discharge Plan Discharge Items Patient Disposition: Home - Self-Care Reason For Visit: NEPHROLITHIASIS, HYDRONEPHROSIS Discharge Diagnosis: nephrolithiasis Activity: Per Instructions section Non-emergency contact: Primary Care Provider and Urologist Call non-emergency contact if: you have any medication questions, your symptoms worsen and your temperature is above 101 Follow-up/Referrals: EPI PEREZ [Other] (FAX NUMBER IS [phone] with care to Team Barbara) Arpan Delgado DO [Physician] - (DR. Lang office will call you with appointment date and time ) Diet: Regular Addtl Attending Provider Instructions: You were admitted to the hospital for chills and back pain. You were found to have a kidney stone stuck. You were seen by Urology, who broke up the stone during a cystoscopy, and you had a stent placed. Your symptoms continued to get better, and you were able to tolerate food without increases in abdominal pain and nausea. We followed a urine culture to see if you had bacteria in your urine, which there was small growth. Your kidney numbers were somewhat increased, indicating some mild kidney injury due to the stuck stone. This returned to normal after the stone was removed and you got IV fluids. We felt safe to discharge you from the hospital with the following recommendations: 1) You should call your primary care office in [place] to make the doctor aware that you were admitted to the hospital. 2) You will have follow up with the Urology office in about a week or so, and at that time they will discuss removal of the stent. You should be called by their office, but if you are not please call the provided number above for Dr. Delgado. 3) You were sent with Keflex 500 milligrams every 12 hours as antibiotic for your urine. You should start this tomorrow with breakfast. This was sent to your Pharmacy ([facility] in [place]). If you have any of the symptoms described below, please call te Urology office immediately. Addtl Aircraft Maintenance Manager Provider Instructions: Please take all medications as prescribed and keep all follow-ups as scheduled. Please call our office at [phone] with any questions, concerns or need to reschedule appointments for any reason. We are happy to assist you. While you have a ureteral stent in place: Some discomfort is normal. Certain movements may trigger pain or a feeling that you need to urinate. You may also feel mild soreness or pressure before or during urination. These symptoms should go away a few days after the stent is removed. Your urine may be slightly pink or red. This is due to bleeding caused by minor irritation from the stent. This may happen on and off while you have the stent, it is not harmful and is to be expected. Medication to help minimize discomfort or bladder spasms, or to prevent infection may be prescribed. Take this as directed. Drink plenty of fluids to help flush out your urinary tract. If you go home with a catheter, wash with soapy water and a fresh washcloth twice daily. We recommend mild bar soap such as Dial or Dove. How long will you need a stent? An appointment should already be made for you for stent removal, unless directed otherwise. The stent is often taken out after the blockage in the ureter is treated or the ureter has healed. This may take 1-2 weeks, or longer. If a stent is needed for a longer period of time, it may need to be exchanged every few months. Likely prior to your followup appointment you will be asked to get an X-ray, please complete this the night before or morning of your appointment. When to call [facility] Urology at [phone]: Your urine contains heavy blood clots You are constantly leaking urine Fever of 101F or higher, chills, nausea, or vomiting Your pain is not relieved with medication The end of the stent comes out of your urethra Pending Studies at Discharge: No Stand-Alone Forms: My [facility] [employer], Smoking Cessation Medications and DC Order Prescriptions: New cephalexin 500 mg capsule 500 mg PO BID 5 Days Qty: 10 RF: 0 Continued atorvastatin 10 mg Tablet 10 mg PO HS RF: 0 metformin 1,000 mg Tablet 1,000 mg PO BID RF: 0 lisinopril 10 mg Tablet 10 mg PO HS RF: 0 gabapentin 300 mg Capsule 0 mg PO HS RF: 0 No Action tamsulosin 0.4 mg capsule 0.4 mg PO DAILY Qty: 30 RF: 0 oxycodone-acetaminophen [Percocet] 5-325 mg tablet 1 tab PO Q8H PRN (Reason: pain) Qty: 10 RF: 0 phenazopyridine [Pyridium] 200 mg tablet 200 mg PO TID PRN (Reason: pain) Qty: 7 RF: 0 Discharge Orders: Discharge Order (Routine); Ordered 02/09/21 Ordered By: Alayna Lobo/Other Patient Handouts: Managing Type 2 Diabetes, Managing Diabetes: The A1C Test Admission Data Admit Date/Time: 02/08/21 00:27 Attending Provider: Arianna Paris Admit Provider: Soham Montalvo Primary Care Provider: Epi Perez Other Providers: Pernell Burrows ; Arpan Delgado Other Interventions: Discharge Summary Assessment (RN) Last Done: 02/09/21 13:40 Supervising Physician Co-Signing Physician Notes Resident Physician Supervision Note: I independently interviewed and examined the patient and verified the mcgrath history and physical, reviewed labs and image studies, discussed the case with the resident Dr. Whitehead and agree with the findings and care plan. Resident Activity Tracking Resident Involvement: Resident Care Provided Care Provided: Adult Hospital Medicine
--- NOTE | 2021-02-12 20:08 | Billing Data ---
Date of Service February 12, 2021 Coding Level of Care Code 94270 Initial Inpt Care Lvl 2
[2021-02-12 21:52] LABS: Component 2 DNR; Source URETER STONE
--- NOTE | 2021-02-15 11:38 | Coding Query ---
To promote full compliance with coding requirements relating to patient care, provider participation is requested in all cases of check and transfer beader uncertainty. Please assist us with the question(s) below: Coding Question(s): The diagnosis below was documented in the H&P, then subsequently fell off all further documentation. Please indicate if it is still a possible diagnosis or ruled out. Physician's Response(s): POSSIBLE UTI ( x ) Diagnosed and POA ( ) Diagnosed and not POA ( ) Ruled out ( ) Other (please specify) MTDD
== END 2021-02-09 14:54 | disposition home or self-care (01) | DRG 661 ==
LOC: ED 20:28 → 3W 02-08 00:27 → SUATTDRO 02-08 00:27 → 3W 02-08 01:11